=== PATIENT | female | born 1985 | race Caucasian/White ===

== ENCOUNTER 2020-09-11 11:02 | Outpatient (CLI) | payer OTHER ==
--- NOTE | 2020-09-19 09:07 | Mammography Report ---
DIGITAL SCREENING MAMMOGRAM WITH TOMOSYNTHESIS WITH CAD, 09/16/2020 CLINICAL INFORMATION / INDICATION: Routine Screening Mammography. TECHNIQUE: Digital bilateral 2D and 3D mammography with tomosynthesis was obtained in the craniocaud al and mediolateral oblique projections. Computer-Aided Detection (CAD) analysis was used for interp retation of this study. COMPARISON: None available FINDINGS: Breast Density: The breasts are heterogeneously dense, which may obscure small masses. No dominant mass, suspicious calcifications, or architectural distortion in the left breast. Asymmetric focal density is seen in the axillary tail region of the right breast posteriorly. I belie ve this is likely just asymmetric breast tissue but suggest further evaluation. IMPRESSION: Asymmetric focal density on the right as above Follow up recommendation: Right spot compression views and ultrasound if needed BI-RADS Category 0: Incomplete. Needs additional imaging evaluation and/or prior mammograms for sukhwinder shikhaon. A "normal" or negative report should not discourage follow up or biopsy of a clinically significant f inding. A written summary of these findings will be mailed to the patient. The patient will be entered into a mammography reporting system which will generate a reminder letter for the patient's next appointmen t at the appropriate interval. The [employer] recommends yearly mammograms starting at age 40 and continuing as l wilber as a woman is in good health. Breast MRI is recommended for women with an approximate 20-25% or greater lifetime risk of breast cancer, including women with a strong family history of breast or ova fodr cancer or who have been treated for Hodgkin's disease. Signer Name: Joselito Andrews MD Signed: 09/19/2020 9:03 AM Workstation Name: [id number]
== END 2020-09-11 11:03 | disposition home or self-care (01) ==
LOC: SPVWC 11:02
PROVIDERS: ATTEND Surgery
DX: Z12.31 Encounter for screening mammogram for malignant neoplasm of breast (principal)
CPT/HCPCS: 77063; 77067